=== PATIENT | male | born 1960 | race Caucasian/White ===

== ENCOUNTER 2019-01-18 11:38 | Inpatient (IN) | payer OTHER ==
[~2019-01-18] VITALS: Ht 182.9 cm; Wt 99.8 kg
--- NOTE | ~2019-01-18 | OP ---
[address] [address] OPERATIVE REPORT Name: MAURILIOSAHARA Franklin Room: [address] IN M.R.#: [id number] Admission: 01/18/19 Attend Phys: Chi Strickland DO Discharge: Date of : 64 Report #: [id number] THIS REPORT FOR: //name// CC: Chi Strickland FAM unknown [facility] DATE OF SERVICE: 01/18/2019 PREOPERATIVE DIAGNOSIS: Acute appendicitis. POSTOPERATIVE DIAGNOSIS: Acute ruptured appendicitis with peritonitis. PROCEDURE: Laparoscopic appendectomy. SURGEON: Chi Strickland DO. APPRAISAL COORDINATOR: Dr. Mariel Villa. ANESTHESIA: General endotracheal. ESTIMATED BLOOD LOSS: 20 mL. COMPLICATIONS: None. DESCRIPTION OF PROCEDURE: After obtaining proper consents and discussing risks and complications with the patient, he was taken to the operating room and laid on the supine position, administered general anesthesia. He was then prepped and draped in the usual sterile fashion. A timeout was performed. We confirmed the appropriate patient and procedure. Preoperative antibiotics were given. SCDs were in place. We placed a Lemus catheter also because the patient was unable to urinate before surgery. We then made a small supraumbilical skin incision with a #11 scalpel blade. This was carried down through the skin into the subcutaneous tissue using electrocautery for hemostasis. Once the fascia was encountered, it was incised along the midline, grasped and elevated with Alejandra clamps. The peritoneum was then bluntly opened using a hemostat. A finger was placed inside the peritoneal cavity to assure that there were no jude-incisional adhesions. Next, 2-0 Vicryl sutures were placed in a [id number] fashion to secure the Jeremy trocar, which was then inserted and insufflation was begun. Once insufflation was complete, full visual inspection of the anterior abdominal organs was performed. This revealed an inflammatory mass with some purulent-appearing fluid in the right lower quadrant. The small bowel, which could be visualized also appeared to be quite injected and red. We then placed the patient in Trendelenburg position, placed a 5 mm trocar in the suprapubic position and a 12 mm trocar in the left lower quadrant. I was then able to sweep the omentum up out of the pelvis and identify [place], [place] [address] OPERATIVE REPORT Name: SAHARA THORPE Room: [address] IN .R.#: [id number] Admission: 01/18/19 Attend Phys: Chi Strickland, DO Discharge: Date of : 64 Report #: [id number] again was quite inflamed as well as the majority of the small bowel, which could be visualized. The appendix appeared to be lying along the posterior aspect of the cecum. I was easily able to visualize the base of the appendix after sweeping some of the inflamed fat away and then we identified the entire length of the appendix going along the retrocecal position. It did appear that the appendix was ruptured at the distal portion of the appendix. I was then able to elevate the appendix and identify an avascular window at the base of the appendix. This was opened and then an Endo-FRANKLYN 45 mm purple load was placed across the base of the appendix and fired. I was then able to use the Harmonic scalpel to sequentially clamp and divide the mesoappendix until the entire appendix was freed. The appendix was then placed into an Endopouch. I then ran the entire small bowel to assure there were no intermesenteric abscesses. There was quite a bit of fluid in the pelvis and also some in the right upper quadrant, which appeared cloudy. I irrigated with approximately 4 liters of saline solution until this fluid was clear. We also assured there were no intermesenteric abscesses. Next, I placed a 15-Luxembourgish Vinny-Sethi drain through the suprapubic port. This was placed down into the pelvis and along the right pericolic gutter and then sutured in place using 2-0 nylon suture. I then removed the 12 mm left lower quadrant trocar and we used a PMI closure device to close this fascia with 0 Vicryl suture. The insufflation was then stopped. All air was released. The remaining umbilical trocar was removed and the appendix was removed through the umbilical incision. The umbilical fascia was then closed using the 2 previously placed 0 Vicryl sutures plus 2 additional 0 Vicryl sutures. Skin incisions were all closed using 4-0 Monocryl subcuticular stitches. Mastisol, Steri-Strips, sterile OpSite and pressure dressings were placed and the wounds were injected with 0.5% Marcaine without epinephrine. Sponge, needle and instrument counts were all correct at the end of the procedure. By: [id number] Strickland DO /teresa
[2019-01-18 11:46] VITALS: BP 183/75
[2019-01-18] MEDS ORDERED: TENORMIN50 MG PO (11:49)
[2019-01-18] MEDS ORDERED: ASPIR 8181 MG PO (11:49)
[2019-01-18] MEDS ORDERED: FISH OIL 1,001000 M2 PO (11:49)
[2019-01-18 12:05] LABS: ABSOLUTE BASOPHILS 0.1 thou/uL (0.0-0.2); ABSOLUTE EOSINOPHILS 0.1 thou/uL (0.0-0.7); ABSOLUTE LYMPHOCYTES 1.4 thou/uL (0.8-5.3); ABSOLUTE MONOCYTES 1.1 thou/uL (0.0-1.2); BASOPHILS 0.7 %; EOSINOPHILS 0.7 %; HEMATOCRIT 44.8 % (42.0-52.0); HEMOGLOBIN 15.1 gm/dL (14.0-18.0); LYMPHOCYTES 11.2 %; MCH 32.1 pg (26.0-34.0); MCHC 33.8 g/dL (28.0-37.0); MONOCYTES 8.3 %; MPV 9.4 fl. (7.2-11.1); NUCLEATED RBCS 0 /100WBC; PLATELET COUNT* 142 thou/uL (150-400); POLYS 79.1 %; RBC 4.72 mil/uL (4.50-6.00); WBC 12.6 thou/uL (4.0-11.0)
[2019-01-18 12:09] LABS: CALCIUM 9.1 mg/dL (8.5-10.1); CREATININE 1.4 mg/dL (0.6-1.3); POTASSIUM 4.4 mmol/L (3.5-5.1)
[2019-01-18 12:16] LABS: ALBUMIN 3.5 g/dL (3.4-5.0); TOTAL BILIRUBIN 1.3 mg/dL (<0.1-1.0); TOTAL PROTEIN 7.1 g/dL (6.4-8.2)
[2019-01-18 13:58] LABS: APTT 29.9 Seconds (25.0-31.3); PROTIME 10.7 Seconds (9.20-11.50)
[2019-01-18 16:23] VITALS: BP 148/78
--- NOTE | 2019-01-18 16:30 | NUR ---
ADMISSION. PATIENT A&OX4, REC'D FROM ER PER BED TO RM 108. IV CATH SITE NOTED WNL. IV FLUIDS INFUSING W/O DIFF. FAMILY MEMBERS PRESENT. SEE MAR. REPORT REC'D FROM ER NURSE. SEE ASSESSMENT. AWAITING SURGERY. PATIENT EDUCATED ON ADMISSION PROCESS, ROOM AND CALL LIGHT. PATIENT STATES VERBALLY OF UNDERSTANDING OF INSTRUCTION. PATIENT STATES PAIN 10/10 IN RLQ, DENIES RADIATION OF PAIN. SEE MAR. ~SARAHN
--- NOTE | 2019-01-18 18:00 | NUR ---
SURGERY IN TO REC PATIENT. PATIENT ESCORTED TO SURGERY PER BED. A&OX4. ~TJRN
[2019-01-18 22:00] VITALS: BP 142/74
--- NOTE | 2019-01-18 22:20 | NUR ---
2138 PATIENT RETURNED TO ROOM FROM PACU BY BED IN STABLE CONDITION. VITAL SIGNS STABLE. ROOM AIR WITH CONTINUOUS CAPNOGRAPHY. MENDEZ PATENT TO DEPENDENT DRAINAGE. IVF'S RESUMED TO PATENT IV SITE LEFT AC. SCD'S IN PLACE BILATERALLY. YAIR PRESENT WITH SEROSANGUINEOUS DRAINAGE. DRESSINGS TO ABDOMEN CLEAN AND DRY. PATIENT ORIENTED TO POST-OP ROUTINES INCLUDING SPLINTING ABD WITH FOLDED BLANKET FOR COUGH AND DEEP BREATHING. OFFERED ICE CHIPS AND SIPS OF CLEARS AFTER CLARIFYING ORDERS WITH DR. Mildred DEVLIN. CURRENTLY RESTING QUIETLY. CONTINUE TO MONITOR.
[2019-01-19 00:29] VITALS: BP 119/66
[2019-01-19 04:15] VITALS: BP 126/65
--- NOTE | 2019-01-19 05:04 | NUR ---
PATIENT HAS REMAINED EASILY AROUSABLE AND ORIENTED X 4 THROUGHOUT THE SHIFT AND RESTING COMFORTABLY ON HOURLY ROUNDS. BEDREST. MOVING SELF IN BED. DRESSINGS TO ABDOMEN HAVE REMAINED CLEAN AND DRY. YAIR WITH 50 ML OUT OF THIS WRITING. ADEQUATE URINE OUTPUT. MENDEZ CATHETER DISCONTINUED AT 0415. HAS DENIED NEED FOR PAIN MEDICATION. IVF'S AND ANTIBIOTICS PER ORDER. VITAL SIGNS STABLE ON ROOM AIR WITH CONTINUOUS CAPNOGRAPHY READINGS WITHIN NORMAL LIMITS. CONTINUE TO MONITOR.
[2019-01-19 05:08] LABS: HEMATOCRIT 39.4 % (42.0-52.0); HEMOGLOBIN 13.4 gm/dL (14.0-18.0); MCH 32.2 pg (26.0-34.0); MCV 94.7 fL (80.0-100.0); MPV 9.9 fl. (7.2-11.1); RBC 4.16 mil/uL (4.50-6.00); WBC 9.6 thou/uL (4.0-11.0)
[2019-01-19 05:19] LABS: ALBUMIN 2.4 g/dL (3.4-5.0); CALCIUM 8.2 mg/dL (8.5-10.1); CREATININE 1.2 mg/dL (0.6-1.3); POTASSIUM 4.4 mmol/L (3.5-5.1); TOTAL BILIRUBIN 1.1 mg/dL (<0.1-1.0); TOTAL PROTEIN 5.7 g/dL (6.4-8.2)
[2019-01-19 08:20] VITALS: BP 167/71
[2019-01-19 15:34] VITALS: BP 118/51
--- NOTE | 2019-01-19 19:00 | NUR ---
PATIENT PLEASANT AND COOPERATIVE THRU SHIFT. AMBULATING IN HALLS X2, APPROX 200FT W/ SBA, STEADY GAIT NOTED. IV CATH SITE NOTED WNL. FLUIDS INFUSING W/O DIFF. YAIR EMPTIED W/ 3ML SERO DRNG. SURG SITE DRSGS INTACT, NOTED OLD RED DRNG TO UMB AND LLQ SITES. YAIR DRN SKIN SITE NOTED SUTURES INTACT, SKIN WNL. PATIENT SHOWERED AND SITTING UP CHAIR. SEE MAR FOR PAIN CONTROL. NOTED ABD DISTENTION THIS PM, PATIENT STATES URINATING WELL AND BMX1 THIS PM. DENIES OTHER NURSING NEEDS AT THIS TIME. HRLY ROUNDING DONE, CALL LIGHT IN REACH. PRESENT IN RM. ~TJRN
[2019-01-19 20:00] VITALS: BP 156/67
[2019-01-20 04:00] VITALS: BP 117/68
--- NOTE | 2019-01-20 05:22 | NUR ---
PATIENT HAS REMAINED ALERT AND ORIENTED X 4 THROUGHOUT THE SHIFT AND RESTING QUIETLY ON HOURLY ROUNDS. UP INDEPENDENTLY WITH STEADY GAIT. ABDOMINAL SURGICAL SITES CLEAN AND DRY. YAIR INTACT WITH MIN SEROSANGUINEOUS DRAINAGE. MEDICATED FOR PAIN X 1 TO GOOD EFFECT. AFEBRILE, VITAL SIGNS STABLE. ANTIBIOTICS PER ORDER. CONTINUE TO MONITOR.
[2019-01-20 08:00] VITALS: BP 149/65
[2019-01-20] MEDS ORDERED: NORCO 5-325 TA1 EAC1 PO (11:23)
[2019-01-20] MEDS ORDERED: FLAGYL500 M1 PO (11:24)
[2019-01-20] MEDS ORDERED: AUGMENTIN 875-1 EACH PO (11:25)
[2019-01-20 11:30] VITALS: BP 149/65
--- NOTE | 2019-01-23 15:05 | PATH ---
[facility] [address] [place] [address] PATHOLOGY RPT PROCEDURE Name: SAHARA THORPE Room: [address] IN M.R.#: [id number] Admission: 01/18/19 Date of : 64 Discharge: 01/20/19 Report #: [id number] Path Case #: [id number] [facility] Accession Number: [id number] . 01 Material submitted: . appendix - APPENDIX . 01 Clinical history: . Acute appendicitis . 02 Diagnosis: Appendix, appendix: - Acute appendicitis and periappendicitis with perforation. (NICHOM:waldemar; 01/22/2019) MBR/01/22/2019 . 02 Electronically signed: . Dewey Chan MD, Pathologist NPI- [id number] . 01 Gross description: . Received in formalin, labeled "[place], [place], appendix ", is a disrupted appendix (7.2 cm length x 1.3 cm diameter) and attached mesoappendix (4.5 x 0.7 x 0.5 cm). The proximal resection margin is closed by a linear staple line, 1.5 cm with an average 0.2 cm width. The staple line and the adjacent serosa is inked black. The serosa is diffusely hemorrhagic and covered by modi-white purulent exudate and has a perforation measuring 0.5 x 0.5 that is 4.5 cm from the proximal resection margin and 2.2 cm from the distal tip. The perforation is inked blue. The proximal to mid lumen is not dilated and the mid to distal filled with hemorrhagic material. No discrete fecalith is identified. The wall has an average thickness of 0.1 cm. The jude-appendiceal soft tissue is covered by hemorrhage and possible purulent exudate. Image Processing Engineer tissue is submitted in A1-A2. (A2 = perforation) ([facility]; 01/20/2019) SHS/SHS . 02 Pathologist provided ICD-10: K35.80 . 02 CPT . 476688 Specimen Comment: A courtesy copy of this report has been sent to Specimen Comment: [phone]. Specimen Comment: Report sent to Performed at: [address], [place], [place] [id number] MD Marcelino Garcia MD Phone: [phone] [place] [address] PATHOLOGY RPT PROCEDURE Name: CASPERSAHARA Noemi Room: [address] IN M.R.#: [id number] Admission: 01/18/19 Date of : 64 Discharge: 01/20/19 Report #: [id number] Path Case #: [id number] Performed at: [address] [place] [id number], [place] [id number] MD Sj Hopkins MD Phone: [phone]
== END 2019-01-20 13:30 | disposition home or self-care (01) | DRG 339 ==
LOC: M.ERS 11:38 → M.TBA-ER 13:54 → M.ORTHSURG 13:54
PROVIDERS: Nurse Practitioner Family; ADMIT Surgery
PROC: 0DTJ4ZZ Resection of Appendix, Percutaneous Endoscopic Approach (ICD-10-PCS; principal; 2019-01-18)
DX: K35.32 Acute appendicitis with perforation, localized peritonitis, and gangrene, without abscess (principal); E44.1 Mild protein-calorie malnutrition; R65.10 Systemic inflammatory response syndrome (SIRS) of non-infectious origin without acute organ dysfunction; I12.9 Hypertensive chronic kidney disease with stage 1 through stage 4 chronic kidney disease, or unspecified chronic kidney disease; N18.2 Chronic kidney disease, stage 2 (mild); D72.829 Elevated white blood cell count, unspecified; Z79.82 Long term (current) use of aspirin; Z79.899 Other long term (current) drug therapy